=== PATIENT | female | born 1980 | race Two or more races ===

== ENCOUNTER 2020-08-16 02:34 | Emergency (ER) | payer OTHER ==
[~2020-08-16] VITALS: Ht 152.4 cm; Wt 66.7 kg
[2020-08-16] MEDS ORDERED: PRENA1 TRUE CO1 EACH (02:38)
== END 2020-08-16 06:35 | disposition home or self-care (01) ==
LOC: ER 02:34
DX: O20.0 Threatened abortion (principal)

== ENCOUNTER 2022-01-14 00:11 | Emergency (ER) | payer OTHER ==
[~2022-01-14] VITALS: Ht 152.4 cm; Wt 63.5 kg
[~2022-01-14 00:11] MED LIST: PRENA1 TRUE CO1 EACH
== END 2022-01-14 01:09 | disposition home or self-care (01) ==
LOC: ER 00:11
DX: N39.0 Urinary tract infection, site not specified (principal); B96.20 Unspecified Escherichia coli [E. coli] as the cause of diseases classified elsewhere